=== PATIENT | male | born 1955 | race Caucasian/White ===

== ENCOUNTER 2020-07-22 10:53 | Outpatient (REF) | payer BC, SELFPAY ==
[2020-07-23 10:08] LABS: SARS COV2 IgG Positive (Negative)
== END 2020-07-22 10:54 | disposition home or self-care (01) ==
LOC: HO.WFDLDS 10:53
PROVIDERS: Visit Provider Family Medicine
DX: Z20.822 Contact with and (suspected) exposure to COVID-19 (principal); M79.10 Myalgia, unspecified site
CPT/HCPCS: 36415; 86769; U0003